=== PATIENT | male | born 1935 | race Caucasian/White ===

== ENCOUNTER 2021-02-15 11:57 | Observation (INO) ==
[2021-02-15] MEDS ORDERED: *HR* Dextrose 50 % in Water (Syg) 50 ML SYRINGE ONE (12:00)
[2021-02-15] MEDS ORDERED: *HR* Dextrose 50 % in Water (Syg) 50 ML SYRINGE IVP ONE (12:04)
[2021-02-15 13:11] LABS: Hemoglobin 15.7 g/dL (12.9-16.9)
[2021-02-15 13:13] LABS: Hematocrit 47.6 % (37.5-50.1); Immature Platelets 7.3 % (1.1-6.1); Mean Corpuscular Hemoglobin 27.7 pg (28.0-33.3); Mean Platelet Volume 10.4 fL (9.4-12.4); Red Blood Count 5.67 M/mcL (4.19-5.50); White Blood Count 6.7 K/mcL (4.3-11.1)
[2021-02-15 13:40] LABS: Alanine Aminotransferase 4 Units/L (7-52); Albumin/Globulin Ratio 1.8 (1.1-2.2); Alkaline Phosphatase 75 Units/L (34-104); Aspartate Amino Transferase 13 Units/L (13-39); BUN/Creatinine Ratio 17 (6-26); Bilirubin,Direct 0.2 mg/dL (0.0-0.2); Bilirubin,Indirect 0.9 mg/dL (0.0-1.0); Bilirubin,Total 1.1 mg/dL (0.3-1.0); Blood Urea Nitrogen 20 mg/dL (8-23); Calcium 9.1 mg/dL (8.6-10.3); Carbon Dioxide 26 mEq/L (23-29); Chloride 103 mEq/L (98-107); Globulin 2.2 g/dL (2.4-3.5); Glucose 217 mg/dL (70-105); Osmolality,Calculated 295 (280-300); Potassium 3.9 mEq/L (3.5-5.1); Sodium 138 mEq/L (136-145); Total Protein 6.2 g/dL (6.4-8.9); eGFR For African Americans > 60 (> 60); eGFR For Non-African Americans 57 (> 60)
[2021-02-15] MEDS ORDERED: D5% in Water 1,000 ML IVC PRN (14:08)
[2021-02-15] MEDS ORDERED: Ondansetron 4 MG/2 ML VIAL IVP PRN (14:08)
[2021-02-15] MEDS ORDERED: Melatonin 3 MG TABLET PO PRN (14:08)
[2021-02-15] MEDS ORDERED: Naloxone 0.4 MG/ML INJ IVP PRN (14:08)
[2021-02-15] MEDS ORDERED: Dextrose Gel 15 GM/37.5 ML TUBE PO PRN ×2 (14:08)
[2021-02-15] MEDS ORDERED: *HR* Dextrose 50 % in Water (Syg) 50 ML SYRINGE IVP PRN (14:08)
[2021-02-16 05:16] LABS: Blood Urea Nitrogen 15 mg/dL (8-23); Calcium 9.2 mg/dL (8.6-10.3); Carbon Dioxide 25 mEq/L (23-29); Chloride 107 mEq/L (98-107); Glucose 119 mg/dL (70-105); Osmolality,Calculated 290 (280-300); Potassium 3.7 mEq/L (3.5-5.1); Sodium 139 mEq/L (136-145)
[2021-02-16 05:54] LABS: BUN/Creatinine Ratio 14 (6-26); eGFR For African Americans > 60 (> 60); eGFR For Non-African Americans > 60 (> 60)
[2021-02-16 12:38] LABS: Estimated Average Glucose 103 mg/dl; Hemoglobin A1C 5.2 %
[2021-02-16] MEDS ORDERED: Carbidopa/Levodopa 25/100 TABLET PO SCH (15:00)
[2021-02-16] MEDS ORDERED: Aspirin Enteric Coated 81 MG Tablet PO SCH (15:00)
[2021-02-16 15:50] VITALS: BP 156/86; PULSE 74; TEMP 98.7; O2SAT 93
[2021-02-16] MEDS ORDERED: Pregabalin 75 MG CAPSULE PO SCH (21:00)
[2021-02-17] MEDS ORDERED: Cholecalciferol (D-3) 1,000 UNIT (25MCG) TABLET PO SCH (09:00)
[2021-02-17] MEDS ORDERED: Finasteride 5 MG TABLET PO SCH (09:00)
[2021-02-17] MEDS ORDERED: Multivit/Ca/Min/Fe/FA 1 TAB TABLET PO SCH (09:00)
== END 2021-02-16 17:15 | disposition home or self-care (01) ==
LOC: 2ANU 11:57 → EMEROOARM 11:57 → SUATTDRO 15:33 → 2ANU 16:10
PROVIDERS: ADMIT Family Medicine; ATTEND Student in an Organized Health Care Education/Training Program

== ENCOUNTER 2021-05-22 20:53 | Inpatient (IN) ==
[2021-05-22 21:05] LABS: ABG Base Excess 0 mEq/L (-2 to 3); ABG HCO3 21 mEq/L (21-27); ABG Oxygen Saturation 100 % (95-98); ABG PCO2 25 mmHg (35-45); ABG PH 7.53 pH Units (7.32-7.45); ABG PO2 158 mmHg (85-104); ABG TCO2 22 mEq/L (20-26)
[2021-05-22] MEDS ORDERED: *HR* Midazolam HCl 2 MG/2 ML VIAL ONE (21:08)
[2021-05-22] MEDS ORDERED: *HR* Midazolam HCl 2 MG/2 ML VIAL IVP ONE (21:12)
[2021-05-22] MEDS ORDERED: 0.9 % Sodium Chloride 1,000 ML ONE (21:12)
[2021-05-22] MEDS ORDERED: 0.9 % Sodium Chloride 1,000 ML IVC ONE ×2 (21:16→21:18)
[2021-05-22] MEDS ORDERED: cefTRIAXone 1,000 MG in Water for inj. (sterile) 10 ML IVP ONE (21:18)
[2021-05-22] MEDS ORDERED: Isovue-370 500 ML BOTTLE IVP ONE (21:18)
[2021-05-22 21:33] LABS: Basophils % 0.3 %; Eosinophils % 0.1 %; Hemoglobin 14.8 g/dL (12.9-16.9); Mean Corpuscular Hemoglobin 27.2 pg (28.0-33.3); Red Blood Count 5.44 M/mcL (4.19-5.50); Red Cell Distribution Width 15.5 % (11.5-14.5)
[2021-05-22 21:35] LABS: Hematocrit 43.5 % (37.5-50.1); Immature Granulocytes % 0.8 % (0-4); Immature Platelets 7.9 % (1.1-6.1); Lymphocytes # 0.7 K/mcL (0.6-4.6); Lymphocytes % 6.8 %; Monocytes # 0.7 K/mcL (0.0-1.3); Monocytes % 6.4 %; Neutrophils # 8.8 K/mcL (1.6-8.9); Segmented Neutrophils % 85.6 %; White Blood Count 10.3 K/mcL (4.3-11.1)
[2021-05-22] MEDS ORDERED: 0.9 % Sodium Chloride 250 ML ONE (21:41)
[2021-05-22] MEDS ORDERED: *HR* Norepinephrine 4 MG/4 ML VIAL IVC ONE (21:41)
[2021-05-22 21:42] LABS: INR 1.5; Prothrombin Time 16.2 Seconds (9.4-12.1)
[2021-05-22 21:45] LABS: Activated Partial Thrombo Time 29.3 Seconds (26.0-36.0)
[2021-05-22 22:06] LABS: Alanine Aminotransferase 5 Units/L (7-52); Albumin 3.3 g/dL (3.5-5.7); Albumin/Globulin Ratio 1.4 (1.1-2.2); Alkaline Phosphatase 115 Units/L (34-104); Aspartate Amino Transferase 22 Units/L (13-39); BUN/Creatinine Ratio 20 (6-26); Bilirubin,Direct 0.3 mg/dL (0.0-0.2); Bilirubin,Indirect 0.7 mg/dL (0.0-1.0); Blood Urea Nitrogen 42 mg/dL (8-23); Calcium 8.5 mg/dL (8.6-10.3); Carbon Dioxide 21 mEq/L (23-29); Chloride 103 mEq/L (98-107); Globulin 2.4 g/dL (2.4-3.5); Glucose 154 mg/dL (70-105); Lipase 17 Units/L (11-82); Osmolality,Calculated 300 (280-300); Phosphorous < 1.0 mg/dL (2.7-4.5); Platelet Count 67 K/mcL (140-400); Potassium 4.3 mEq/L (3.5-5.1); Sodium 138 mEq/L (136-145); Total Protein 5.7 g/dL (6.4-8.9); Troponin I 0.25 ng/mL (< 0.04); eGFR For African Americans 36 (> 60); eGFR For Non-African Americans 29 (> 60)
[2021-05-22 22:08] LABS: Platelet Estimate Decreased (Normal); Thyroid Stimulating Hormone 6.643 mcIU/mL (0.340-5.600)
[2021-05-22 22:12] LABS: Influenza A PCR Negative (Negative); Influenza B PCR Negative (Negative); Resp. Syncytial Virus PCR Negative (Negative)
[2021-05-22 22:13] LABS: SARS-CoV-2 by PCR (In House) Negative (Negative)
[2021-05-22 22:22] LABS: Amorphous Sediment,Urine Few per hpf (None-Few); Bacteria,Urine Few per hpf (None-Few); Bilirubin,Urine Negative (Negative); Blood,Urine Small (Negative); Clarity,Urine Ex.Turbid (Clear); Color,Urine Yellow (Yellow); Glucose,Urine (UA) Normal (Normal); Ketones,Urine Negative (Negative); Leukocyte Esterase,Urine Large (Negative); Mucus,Urine Few per lpf (None-Few); Nitrite,Urine Negative (Negative); Protein,Urine 70 mg/dL (Neg-Trace); Specific Gravity,Urine 1.017 (1.010-1.025); Squamous Epithelial Cell,Urine Few per hpf (None-Few); Urobilinogen,Urine Normal (Normal); WBC,Urine TNTC per hpf (0-3)
[2021-05-23] MEDS ORDERED: Naloxone 0.4 MG/ML INJ IVP PRN (00:33)
[2021-05-23] MEDS ORDERED: Ondansetron 4 MG/2 ML VIAL IVP PRN (00:33)
[2021-05-23] MEDS ORDERED: Dextrose Gel 15 GM/37.5 ML TUBE PO PRN ×2 (00:37)
[2021-05-23] MEDS ORDERED: D5% in Water 1,000 ML IVC PRN (00:37)
[2021-05-23] MEDS ORDERED: *HR* Dextrose 50 % in Water (Syg) 50 ML SYRINGE IVP PRN (00:37)
[2021-05-23] MEDS ORDERED: 0.9 % Sodium Chloride 1,000 ML IVC SCH (00:45)
[2021-05-23] MEDS ORDERED: Aspirin 325 MG TABLET PO ONE (01:30)
[2021-05-23] MEDS ORDERED: *HR* Heparin 5,000 UNIT/ML VIAL IVP ONE ×2 (02:08→03:42)
[2021-05-23] MEDS ORDERED: *HR* Heparin 5,000 UNIT/ML VIAL IVP PRN ×4 (02:08→03:42)
[2021-05-23] MEDS ORDERED: Heparin 25,000UNIT/250ML 1/2NS 25,000 UNIT/250 ML IV.SOLN IVC SCH (02:15)
[2021-05-23] MEDS: Norepinephrine 4 MG/254 ML IV.SOLN IVC SCH ×2 (02:23→05:55)
[2021-05-23 02:51] LABS: Hemoglobin 13.3 g/dL (12.9-16.9); Red Cell Distribution Width 15.7 % (11.5-14.5)
[2021-05-23 02:53] LABS: Hematocrit 39.4 % (37.5-50.1); Immature Platelets 7.5 % (1.1-6.1); Mean Corpuscular HGB Conc 33.8 g/dL (31.6-35.5); Mean Corpuscular Hemoglobin 27.5 pg (28.0-33.3); Mean Corpuscular Volume 81.6 fL (83.0-100.0); Red Blood Count 4.83 M/mcL (4.19-5.50); White Blood Count 14.8 K/mcL (4.3-11.1)
[2021-05-23 02:57] LABS: Platelet Count 59 K/mcL (140-400)
[2021-05-23 03:02] LABS: Heparin anti-factor XA UFH < 0.04 IU/mL (0.30-0.70); INR 1.4; Prothrombin Time 15.9 Seconds (9.4-12.1)
[2021-05-23 03:10] LABS: Calcium 7.5 mg/dL (8.6-10.3); Potassium 4.6 mEq/L (3.5-5.1)
[2021-05-23] MEDS: Heparin 25,000UNIT/250ML 1/2NS 25,000 UNIT/250 ML IV.SOLN IVC SCH (04:37)
[2021-05-23] MEDS: Insulin LISPRO 300 UNITS/3 ML VIAL SUBQ SCH ×3 (05:40→18:33)
[2021-05-23] MEDS: cefTRIAXone 1,000 MG in 0.9 % Sodium Chloride Mini Bag 100 ML IVPB SCH (09:56)
[2021-05-24 00:26] LABS: Hematocrit 38.1 % (37.5-50.1); Hemoglobin 12.4 g/dL (12.9-16.9); Mean Corpuscular HGB Conc 32.5 g/dL (31.6-35.5); Mean Corpuscular Hemoglobin 27.2 pg (28.0-33.3); Mean Corpuscular Volume 83.6 fL (83.0-100.0); Platelet Count 62 K/mcL (140-400); Red Blood Count 4.56 M/mcL (4.19-5.50); Red Cell Distribution Width 15.6 % (11.5-14.5); White Blood Count 9.9 K/mcL (4.3-11.1)
[2021-05-24 00:39] LABS: Calcium 7.8 mg/dL (8.6-10.3); Magnesium 1.5 mg/dL (1.6-2.6); Potassium 3.7 mEq/L (3.5-5.1)
[2021-05-24] MEDS: Insulin LISPRO 300 UNITS/3 ML VIAL SUBQ SCH ×4 (01:07→17:18)
[2021-05-24] MEDS: cefTRIAXone 1,000 MG in 0.9 % Sodium Chloride Mini Bag 100 ML IVPB SCH (08:14)
[2021-05-24] MEDS: Heparin 25,000UNIT/250ML 1/2NS 25,000 UNIT/250 ML IV.SOLN IVC SCH (08:18)
[2021-05-24] MEDS ORDERED: Famotidine 20 MG TABLET PO PRN (15:01)
[2021-05-24] MEDS: Pregabalin 75 MG CAPSULE PO SCH (20:53)
[2021-05-24] MEDS: Acetaminophen 325 MG TABLET PO PRN (20:53)
[2021-05-24] MEDS: Carbidopa/Levodopa 25/100 TABLET PO SCH (20:53)
[2021-05-24] MEDS: Melatonin 3 MG TABLET PO PRN (20:53)
[2021-05-25] MEDS: Insulin LISPRO 300 UNITS/3 ML VIAL SUBQ SCH ×5 (00:03→23:04)
[2021-05-25 00:40] LABS: Hemoglobin 12.6 g/dL (12.9-16.9); Immature Platelets 8.1 % (1.1-6.1); Mean Corpuscular HGB Conc 33.2 g/dL (31.6-35.5); Mean Corpuscular Hemoglobin 27.3 pg (28.0-33.3); Mean Corpuscular Volume 82.3 fL (83.0-100.0); Red Blood Count 4.62 M/mcL (4.19-5.50); Red Cell Distribution Width 15.3 % (11.5-14.5); White Blood Count 8.6 K/mcL (4.3-11.1)
[2021-05-25 00:44] LABS: Platelet Count 72 K/mcL (140-400)
[2021-05-25 01:07] LABS: BUN/Creatinine Ratio 29 (6-26); Blood Urea Nitrogen 33 mg/dL (8-23); Calcium 8.3 mg/dL (8.6-10.3); Carbon Dioxide 21 mEq/L (23-29); Chloride 105 mEq/L (98-107); Glucose 148 mg/dL (70-105); Magnesium 1.7 mg/dL (1.6-2.6); Osmolality,Calculated 282 (280-300); Potassium 4.7 mEq/L (3.5-5.1); Sodium 131 mEq/L (136-145); eGFR For African Americans > 60 (> 60); eGFR For Non-African Americans > 60 (> 60)
[2021-05-25] MEDS: Pregabalin 75 MG CAPSULE PO SCH ×2 (07:33→21:13)
[2021-05-25] MEDS: Carbidopa/Levodopa 25/100 TABLET PO SCH ×3 (07:34→21:15)
[2021-05-25] MEDS: Cholecalciferol (D-3) 1,000 UNIT (25MCG) TABLET PO SCH (07:34)
[2021-05-25] MEDS: Magnesium Oxide 400 MG TABLET PO SCH (07:34)
[2021-05-25] MEDS: cefTRIAXone 1,000 MG in 0.9 % Sodium Chloride Mini Bag 100 ML IVPB SCH (07:34)
[2021-05-25] MEDS: lisinopriL 20 MG TABLET PO SCH (07:34)
[2021-05-25] MEDS: Aspirin Enteric Coated 81 MG Tablet PO SCH (07:34)
[2021-05-25] MEDS: Heparin 25,000UNIT/250ML 1/2NS 25,000 UNIT/250 ML IV.SOLN IVC SCH (12:12)
[2021-05-25] MEDS ORDERED: Famotidine 20 MG TABLET PO PRN (14:52)
[2021-05-25] MEDS: Apixaban 5 MG TABLET PO SCH (21:13)
[2021-05-25] MEDS: Melatonin 3 MG TABLET PO PRN (21:13)
[2021-05-25] MEDS: Acetaminophen 325 MG TABLET PO PRN (21:13)
[2021-05-26 02:03] LABS: Hematocrit 42.1 % (37.5-50.1); Hemoglobin 13.7 g/dL (12.9-16.9); Immature Platelets 8.2 % (1.1-6.1); Mean Corpuscular HGB Conc 32.5 g/dL (31.6-35.5); Mean Corpuscular Hemoglobin 27.1 pg (28.0-33.3); Mean Corpuscular Volume 83.2 fL (83.0-100.0); Red Blood Count 5.06 M/mcL (4.19-5.50); Red Cell Distribution Width 15.5 % (11.5-14.5); White Blood Count 8.9 K/mcL (4.3-11.1)
[2021-05-26 02:12] LABS: BUN/Creatinine Ratio 27 (6-26); Blood Urea Nitrogen 33 mg/dL (8-23); Carbon Dioxide 20 mEq/L (23-29); Chloride 103 mEq/L (98-107); Glucose 129 mg/dL (70-105); Osmolality,Calculated 279 (280-300); Potassium 4.7 mEq/L (3.5-5.1); Sodium 130 mEq/L (136-145); eGFR For African Americans > 60 (> 60); eGFR For Non-African Americans 57 (> 60)
[2021-05-26 02:13] LABS: Platelet Count 83 K/mcL (140-400)
[2021-05-26] MEDS: Insulin LISPRO 300 UNITS/3 ML VIAL SUBQ SCH ×3 (04:58→17:43)
[2021-05-26] MEDS: Apixaban 5 MG TABLET PO SCH ×2 (09:56→20:44)
[2021-05-26] MEDS: Aspirin Enteric Coated 81 MG Tablet PO SCH (09:57)
[2021-05-26] MEDS: Cholecalciferol (D-3) 1,000 UNIT (25MCG) TABLET PO SCH (09:57)
[2021-05-26] MEDS: Carbidopa/Levodopa 25/100 TABLET PO SCH ×3 (09:57→20:44)
[2021-05-26] MEDS: Magnesium Oxide 400 MG TABLET PO SCH (09:57)
[2021-05-26] MEDS: Pregabalin 75 MG CAPSULE PO SCH ×2 (09:58→20:44)
[2021-05-26] MEDS: lisinopriL 20 MG TABLET PO SCH (09:58)
[2021-05-26] MEDS: cefTRIAXone 1,000 MG in 0.9 % Sodium Chloride Mini Bag 100 ML IVPB SCH (09:58)
[2021-05-27] MEDS: Insulin LISPRO 300 UNITS/3 ML VIAL SUBQ SCH ×2 (00:14→05:32)
[2021-05-27] MEDS ORDERED: Magnesium Sulfate 1 GM/102 ML PIGGYBACK IVPB ONE (00:32)
[2021-05-27 02:35] LABS: Eosinophils % 3.3 %; Hematocrit 44.7 % (37.5-50.1); Red Cell Distribution Width 15.7 % (11.5-14.5); Segmented Neutrophils % 53.6 %
[2021-05-27 02:37] LABS: Eosinophils # 0.3 K/mcL (0.0-0.6)
[2021-05-27 02:38] LABS: Basophils # 0.1 K/mcL (0.0-0.2); Basophils % 1.1 %; Hemoglobin 14.6 g/dL (12.9-16.9); Immature Granulocytes % 2.9 % (0-4); Immature Platelets 7.3 % (1.1-6.1); Lymphocytes % 30.1 %; Mean Corpuscular HGB Conc 32.7 g/dL (31.6-35.5); Mean Corpuscular Hemoglobin 27.1 pg (28.0-33.3); Mean Corpuscular Volume 82.9 fL (83.0-100.0); Mean Platelet Volume 11.1 fL (9.4-12.4); Monocytes # 0.9 K/mcL (0.0-1.3); Neutrophils # 5.4 K/mcL (1.6-8.9); Nucleated Red Blood Cells 0.2 /100 WBC (0); Red Blood Count 5.39 M/mcL (4.19-5.50)
[2021-05-27 02:43] LABS: Platelet Count 96 K/mcL (140-400)
[2021-05-27 02:56] LABS: BUN/Creatinine Ratio 25 (6-26); Blood Urea Nitrogen 31 mg/dL (8-23); Calcium 9.4 mg/dL (8.6-10.3); Carbon Dioxide 25 mEq/L (23-29); Chloride 102 mEq/L (98-107); Glucose 112 mg/dL (70-105); Magnesium 1.9 mg/dL (1.6-2.6); Osmolality,Calculated 283 (280-300); Phosphorous 4.1 mg/dL (2.7-4.5); Potassium 4.4 mEq/L (3.5-5.1); Sodium 133 mEq/L (136-145); eGFR For African Americans > 60 (> 60); eGFR For Non-African Americans 55 (> 60)
[2021-05-27] MEDS: Magnesium Oxide 400 MG TABLET PO SCH (09:04)
[2021-05-27] MEDS: Pregabalin 75 MG CAPSULE PO SCH (09:05)
[2021-05-27] MEDS: Apixaban 5 MG TABLET PO SCH (09:06)
[2021-05-27] MEDS: Carbidopa/Levodopa 25/100 TABLET PO SCH (09:08)
[2021-05-27] MEDS: Aspirin Enteric Coated 81 MG Tablet PO SCH (09:08)
[2021-05-27] MEDS: lisinopriL 20 MG TABLET PO SCH (09:10)
[2021-05-27] MEDS: cefTRIAXone 1,000 MG in 0.9 % Sodium Chloride Mini Bag 100 ML IVPB SCH (09:15)
[2021-05-27 10:07] VITALS: BP 105/92; PULSE 80; TEMP 97.1; O2SAT 100
== END 2021-05-27 12:27 | disposition home health service (06) | DRG 871 ==
LOC: EDBD → 3NENU 20:53 → EMEROOARM 20:53 → SUATTDRO 05-23 00:39 → OBSVTOIN 05-23 00:39 → MERGE 05-23 00:39 → 3NENU 05-23 01:45
PROVIDERS: ADMIT Student in an Organized Health Care Education/Training Program; ATTEND Internal Medicine